=== PATIENT | female | born 1980 | race Caucasian/White ===

== ENCOUNTER → 2024-05-09 09:28 | Outpatient (REF) | payer BC, SELFPAY | LOC: WDC 09:28 | PROVIDERS: ATTENDING PHYSICIAN Nurse Practitioner Women's Health | DX: N63.10 Unspecified lump in the right breast, unspecified quadrant (principal); N63.14 Unspecified lump in the right breast, lower inner quadrant | CPT/HCPCS: 76642; 77062; 77066 ==

== ENCOUNTER 2024-09-26 06:18 | Day surgery (SDC) | payer BC, SELFPAY | END 2024-09-26 08:53 | disposition home or self-care (01) | LOC: GI 06:18 | PROVIDERS: ATTENDING PHYSICIAN Internal Medicine Gastroenterology | DX: Z12.11 Encounter for screening for malignant neoplasm of colon (principal); K64.8 Other hemorrhoids; K63.5 Polyp of colon; Z80.0 Family history of malignant neoplasm of digestive organs | CPT/HCPCS: 45385; 88305 ==

== ENCOUNTER 2024-11-01 19:11 | Emergency (ER) | payer BC, SELFPAY ==
[2024-11-01 19:14] VITALS: BP 130/84
--- NOTE | 2024-11-01 20:21 | ED.GENMED ---
History of Present Illness
General
Chief Complaint: Musculo-Skeletal Complaint
Source: patient
Exam Limitations: none
Time Seen by Provider: 11/01/24 19:16
History of Present Illness
History of Present Illness:
44yo [id number] female presenting for evaluation of a right ring finger injury that was sustained this evening. 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 She reports falling off of the swing and went to grab herself with
her right hand and the right ring finger got caught. She is presenting with pain and swelling. She is worried that it may be dislocated. No other injuries reported.
Phy Exam
General Physical Exam
General Presentation: well appearing and no apparent distress
General Skin: warm and dry
General Habitus: normal
General Mental: alert
Neurological Exam
Neurological Exam: alert
Hollie Coma Scale
Eye Opening: Spontaneous
Verbal Response: Oriented
Motor Response: Obeys Commands
GCS Total Score: 15
Musculoskeletal Exam
Musculoskeletal Exam: other (R ring finger: Swelling noted to proximal digit with tenderness. Unable to completely extend PIP joint due to swelling. ROM of DIP joint intact. Cap refill and sensation intact at distal fingertip.)
Skin Exam
Skin Exam: normal color and warm/dry
Psychiatric Exam
Psychiatric Exam: normal mood/affect
Course
Orders/Labs/Results
Orders:
Orders
11/01/24 19:38
CR Finger(s)/thumb Min 2 Vw Rt Urgent
Comment:
Reason For Exam: R ring finger injury
11/01/24 20:16
Aluminium Finger Splint Right ONCE
Vital Signs
Initial and Last Documented VS:
Initial Vital Signs
Temp Pulse Resp BP Pulse Ox
98.8 F 91 18 130/84 100
11/01/24 19:14 11/01/24 19:14 11/01/24 19:14 11/01/24 19:14 11/01/24 19:14
Last Documented Vital Signs
Temp Pulse Resp BP Pulse Ox
98.8 F 91 18 130/84 100
11/01/24 19:14 11/01/24 19:14 11/01/24 19:14 11/01/24 19:14 11/01/24 20:22
MDM/Problems Addressed
Differential Diagnosis Includes:
44yoF here with a R ring finger injury this evening. Swelling and tenderness noted. Digit is neurovascularly intact. Differential diagnosis: dislocation, fracture, soft tissue injury
X-rays obtained which show a proximal phalanx fracture. Joint spaces aligned. Aluminum finger splint applied and supportive care discussed. Advised f/u with orthopedics.
*Pulse Oximetry
SaO2: 100
Oxygen Mode of Delivery: Room air
Patient hypoxic: no (100%)
*Critical Care Note
Total Time (30-74mins, 75-104mins- exclusive of procedures): Not Applicable
ED Attending Note
-
Portions of this chart may have been created with voice recognition software.� Occasional wrong word or��sound alike� substitutions may have occurred due to the inherent limitations of voice recognition software.
Discharge Plan
Departure
Patient Disposition: Home (Routine Discharge)
Date of Disposition: 11/01/24
Time of Disposition: 20:22
Patient with high blood pressure during this ER visit?: No
Discharge Problem:
Closed fracture of proximal phalanx of right ring finger
Instructions: Finger Fracture ED
Referrals:
NONE,* [Family Provider, Internal Medicine]
Oswaldo Lemus MD [Active, Orthopedics]
Activity Restrictions/Additional Instructions:
Wear finger splint for immobilization. Apply ice to help with swelling. Take Tylenol and ibuprofen as needed for pain.
Please call on Monday to schedule a follow-up with orthopedics.
Interventions
Interventions:
*Risk Screen - Suicide Last Done: 11/01/24 19:14
*General Assessment Last Done: 11/01/24 19:18
*Neglect/Abuse Screening Last Done: 11/01/24 19:14
*ED- Fall Risk Assessment Last Done: 11/01/24 19:18
*ED COVID-19 Vaccine History Last Done: 11/01/24 19:18
*Nursing Disposition Last Done: 11/01/24 20:33
ED-Musculoskeletal Assessment Last Done: 11/01/24 19:53
Discharge Date and Time
Discharge Date/Time: 11/01/24 20:36
Print Language: UPPER SORBIAN
== END 2024-11-01 20:36 | disposition home or self-care (01) ==
LOC: EMR 19:11
PROVIDERS: EMERGENCY PHYSICIAN Emergency Medicine
DX: S62.614A Displaced fracture of proximal phalanx of right ring finger, initial encounter for closed fracture (principal); W09.1XXA Fall from playground swing, initial encounter
CPT/HCPCS: 29130; 99283; 73140